=== PATIENT | female | born 1975 | race Caucasian/White ===

== ENCOUNTER 2024-08-06 17:36 | Emergency (ER) | payer OTHER ==
[2024-08-06] MEDS ORDERED: HYDROCODONE/APAP 7.5/325 MG TAB ONE (17:57)
--- NOTE | 2024-08-06 18:50 | RAD REPORT ---
EXAMINATION: XR RIGHT ANKLE CLINICAL INDICATION: . PAIN TECHNIQUE:Two view radiograph of the right ankle were obtained. COMPARISON: No prior exam. FINDINGS: Moderate soft tissue swelling adjacent to lateral malleolus. Several ossific density seen inferior to the medial and lateral malleoli. These are well corticated likely related to prior trauma. Large calcaneal spurs. No acute fracture visualized.
--- NOTE | 2024-08-06 18:51 | RAD REPORT ---
EXAMINATION: XR LEFT KNEE CLINICAL INDICATION: PAIN TECHNIQUE: Multiple projections of the left knee were obtained. COMPARISON: No prior exam. FINDINGS: Mild medial compartment space narrowing suggesting degenerative changes. No fracture or dis location. Small suprapatellar effusion.
--- NOTE | 2024-08-06 18:52 | RAD REPORT ---
EXAMINATION: LUMBAR SPINE MULTIPLE VIEWS CLINICAL INDICATION: Female, 49 years old. PAIN TECHNIQUE: Multiple views of the lumbar spine were obtained. COMPARISON: No prior exam. FINDINGS: For purposes of this dictation, it is assumed that there are 5 lumbar type vertebral bodies. ALIGNMENT: Mild degenerative dextroscoliosis. BONES: Vertebral bodies are normal in height. No aggressive osseous lesions. DISCS: Mild disc thinning lower lumbar levels. Prominent facet hypertrophy L4-5 and L5-S1. IMPRESSION: No acute lumbar spine abnormality. Mild lower lumbar spondylosis.
--- NOTE | 2024-08-06 18:55 | EDPHYS ---
Physician Documentation [facility] Name: David Beck Age: 49 yrs Sex: Female : 1975 Arrival Date: 08/06/2024 Time: 17:36 Bed 20 Private MD: ED Physician Chris Landaverde HPI: 08/06 23:35 This 49 yrs old Female presents to ER via EMS with complaints of Ankle Injury. sb4 23:35 Patient states that she twisted her ankle while walking down an incline. States that sb4 she fell to the ground, did not hit her head, did not lose consciousness. She is complaining of pain in her right ankle, left knee, and low back. Abrasion noted to left knee. SUB PRIOR: 19:24 Not cp4 Historical: - Allergies: 17:42 No Known Allergies; bp - PMHx: 17:42 Hypertension; bp - PSHx: 17:42 Coronary Angioplasty; bp - Immunization history:: Adult Immunizations up to date. - Infectious Disease History:: Denies. - Social history:: Smoking status: Patient denies any tobacco usage or history of. ROS: 23:35 Constitutional: Negative for fever, chills, and weight loss, sb4 23:35 MS/extremity: Positive for injury or acute deformity, pain, of the right ankle, 23:35 Skin: Positive for abrasion(s), of the left knee, 23:35 All other systems are negative, Exam: 23:35 Constitutional: This is a well developed, well nourished patient who is awake, alert, sb4 and in no acute distress. Head/Face: Normocephalic, atraumatic. Eyes: Extra-ocular motions intact. Periorbital areas with no swelling, redness, or edema. ENT: Mucous membranes moist. Respiratory: No increased work of breathing, no retractions or nasal flaring. 23:35 Musculoskeletal/extremity: Extremities: noted in the right ankle: pain, swelling, tenderness, 23:35 Skin: injury, abrasion(s), moderate sized abrasion noted, of the left knee, Vital Signs: 17:41 BP 130 / 55; Pulse 77; Resp 16; Temp 98; Pulse Ox 98% ; bp 19:03 BP 127 / 64; Pulse 71; Resp 16; Temp 98; Pulse Ox 99% ; bp MDM: 17:42 Medical Screening Exam initiated sb4 23:36 Data reviewed: vital signs, nurses notes, EMS record, radiologic studies, and as a sb4 result, I will discharge patient. Counseling: I had a detailed discussion with the patient and/or guardian regarding the historical points, exam findings, and any diagnostic results supporting the discharge/admit diagnosis, radiology results, the need for outpatient follow up, for definitive care, to return to the emergency department if symptoms worsen or persist or if there are any questions or concerns that arise at home. 08/06 17:47 Order name: Ankle Right 3 View XRAY; Complete Time: 18:51 sb4 08/06 17:47 Order name: Knee Left 3 View XRAY; Complete Time: 18:52 sb4 08/06 17:47 Order name: Lumbar Spine (3 Views) XRAY; Complete Time: 18:52 sb4 08/06 17:47 Order name: Ice pack; Complete Time: 18:15 sb4 08/06 18:54 Order name: Walking boot; Complete Time: 19:25 sb4 Administered Medications: 18:02 Drug: Hydrocodone-Acetaminophen PO (7.5 mg-325 mg) 1 tabs PO once Route: PO; bp 19:05 Follow up: Response: No adverse reaction bp Disposition Summary: 08/06/24 18:54 Discharge Ordered Notes: Location: Home sb4 Problem: new sb4 Symptoms: have improved sb4 Condition: Stable sb4 Diagnosis - Sprain of other ligament of right ankle sb4 Followup: sb4 - With: Artur Corona MD - When: As needed - Reason: Further diagnostic work-up, Recheck today's complaints, Re-evaluation by your physician Discharge Instructions: - Discharge Summary Sheet sb4 - Ankle Sprain, [id number] sb4 Forms: - Prescription Opioid Use sb4 - Patient Portal Instructions sb4 - Leadership Thank You Letter sb4 Signatures: Dispatcher [employer] Rhys Espinoza, ARCHANA RN Ngozi Roy PA-C PA-C sb4 Corrections: (The following items were deleted from the chart) 17:43 17:42 PMHx: Cardiac pacemaker in situ; bp bp
--- NOTE | 2024-08-06 18:55 | ER ---
Nurse's Notes [facility] Name: David Beck Age: 49 yrs Sex: Female : 1975 Arrival Date: 08/06/2024 Time: 17:36 Bed 20 Private MD: Diagnosis: Sprain of other ligament of right ankle Presentation: 08/06 17:38 Chief complaint: EMS states: MECHANICAL FALL AT HOME, R ANKLE PAIN, LEFT KNEE ABRASION, bp NO HEAD STRIKE, NO LOC. 17:38 Method Of Arrival: EMS: [facility] bp 17:41 Coronavirus screen: At this time, the client does not indicate any symptoms associated bp with coronavirus-19. Ebola Screen: No symptoms or risks identified at this time. Initial Sepsis Screen: Does the patient meet any 2 criteria? No. Patient's initial sepsis screen is negative. Does the patient have a suspected source of infection? No. Patient's initial sepsis screen is negative. Risk Assessment: Do you want to hurt yourself or someone else? Patient reports no desire to harm self or others. Onset of symptoms was August 06, 2024 at 17:00. 17:41 Acuity: CHALO 4 bp Triage Assessment: 17:42 General: Appears in no apparent distress. Behavior is calm, cooperative, appropriate bp for age. Pain: Complains of pain in anterior aspect of right ankle and left knee. EENT: No deficits noted. Neuro: No deficits noted. Cardiovascular: No deficits noted. Respiratory: No deficits noted. GI: No signs and/or symptoms were reported involving the gastrointestinal system. : No signs and/or symptoms were reported regarding the genitourinary system. Derm: No deficits noted. Musculoskeletal: Reports pain in anterior aspect of right ankle. Injury Description: Abrasion sustained to left knee. 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 - Infectious Disease History:: Denies. - Social history:: Smoking status: Patient denies any tobacco usage or history of. Screenin:03 [facility] ED Fall Risk Assessment (Adult) History of falling in the last 3 months, bp including since admission Yes- single mechanical fall (1 pt) Confusion or Disorientation No (0 pts) Intoxicated or Sedated No (0 pts) Impaired Gait No (0 pts) Mobility Assist Device Used No (0 pt) Altered Elimination No (0 pt) Score/Fall Risk Level 0 - 2 = Low Risk Oriented to surroundings. Abuse screen: Denies threats or abuse. Denies injuries from another. Nutritional screening: No deficits noted. Tuberculosis screening: No symptoms or risk factors identified. Assessment: 19:03 Reassessment: PA HOME. bp Vital Signs: 17:41 BP 130 / 55; Pulse 77; Resp 16; Temp 98; Pulse Ox 98% ; bp 19:03 BP 127 / 64; Pulse 71; Resp 16; Temp 98; Pulse Ox 99% ; bp ED Course: 17:37 Patient arrived in ED. bp 17:41 Rhys Mejia, ARCHANA is Primary Nurse. bp 17:41 Triage completed. bp 17:42 Ngozi Scherer PA-C is PHCP. sb4 17:42 Chris Landaverde MD is Attending Physician. sb4 17:44 Arm band placed on. bp 18:30 Ankle Right 3 View XRAY In Process Unspecified. EDMS 18:40 Knee Left 3 View XRAY In Process Unspecified. EDMS 18:40 Lumbar Spine (3 Views) XRAY In Process Unspecified. EDMS 18:54 Artur Corona MD is Referral Physician. sb4 19:03 Patient has correct armband on for positive identification. bp 19:03 No provider procedures requiring assistance completed. Patient did not have IV access bp during this emergency room visit. Ortho shoe applied to right foot. 19:24 Provided Education on: ankle sprain. cp4 Administered Medications: 18:02 Drug: Hydrocodone-Acetaminophen PO (7.5 mg-325 mg) 1 tabs PO once Route: PO; bp 19:05 Follow up: Response: No adverse reaction bp Medication: 19:03 VIS not applicable for this client. bp Outcome: 18:54 Discharge ordered by . sb4 19:05 Discharged to home ambulatory, bp 19:05 Condition: stable 19:05 Discharge instructions given to patient, Instructed on discharge instructions, follow up and referral plans. Demonstrated understanding of instructions, follow-up care, 19:24 Patient left the ED. cp4 Signatures: Dispatcher [employer] EDMS Rhys Mejia RN RN Ngozi Roy PA-C PA-C sb4 Anai Chatman cp4 Corrections: (The following items were deleted from the chart) 17:43 17:42 PMHx: Cardiac pacemaker in situ; bp bp
[2024-08-07 00:54] VITALS: TEMP 98
[2024-08-07 00:56] VITALS: BP 127/64; O2SAT 99
== END 2024-08-06 19:24 | disposition home or self-care (01) ==
LOC: ER 17:36
DX: S93.491A Sprain of other ligament of right ankle, initial encounter (principal); M25.562 Pain in left knee; W18.30XA Fall on same level, unspecified, initial encounter
CPT/HCPCS: 72100